=== PATIENT | female | born 1970 | race Caucasian/White ===

== ENCOUNTER 2017-06-03 02:00 | Emergency (ER) | payer BC, MEDICAID ==
[2017-06-03 02:15] VITALS: BP 155/90
[2017-06-03 02:44] LABS: CHLORIDE,CL 102 mmol/L (101-111); SODIUM,NA 138 mmol/L (135-145)
[2017-06-03] MEDS ORDERED: hydrOXYzine HCl 25 MG Tab PO ONE (03:15)
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
--- NOTE | 2017-06-07 09:10 | EKG ---
06/03/2017- AUS, JUNA C CASAS - EKG per my reading shows sinus rhythm at the rate of [address]. [facility] /[id number]
== END 2017-06-03 03:46 | disposition home or self-care (01) ==
LOC: DL.ED 02:00
DX: F41.9 Anxiety disorder, unspecified (principal); I10 Essential (primary) hypertension; F17.210 Nicotine dependence, cigarettes, uncomplicated; Z79.899 Other long term (current) drug therapy
CPT/HCPCS: 36415; 80053; 84484; 85025; 93005; 99283; A9270

== ENCOUNTER 2017-06-03 20:07 | Emergency (ER) | payer BC, MEDICAID ==
[2017-06-03] MEDS ORDERED: LORazepam 2 MG/ML Syringe IM ONE ×3 (20:14→22:23)
--- NOTE | 2017-06-03 20:18 | EDM.PDOCBH ---
ED HPI GENERAL MEDICAL PROBLEM - General Chief Complaint: Behavioral/Psych Stated Complaint: PANICK ATTACK? Time Seen by Provider: 06/03/17 20:15 Source of Information: Reports: Patient History Limitations: Reports: No Limitations - History of Present Illness INITIAL COMMENTS - FREE TEXT/NARRATIVE: was seen last night for same had negative cardiac w/u. home situation did improve but still feels agitated with chest tightness and still can't stop worrying about home situation. 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 ED EXAM, BEHAVIORAL HEALTH - Physical Exam Exam: See Below Exam Limited By: No Limitations General Appearance: Alert, WD/WN, Anxious, Mild Distress Ears: Hearing Grossly Normal Throat/Mouth: Normal Voice, No Airway Compromise Head: Atraumatic Neck: Non-Tender, Full Range of Motion Respiratory/Chest: No Respiratory Distress Cardiovascular: Regular Rate, Rhythm GI/Abdominal: Soft, Non-Tender Neurological: Alert, Normal Cognition, Normal Gait, No Motor/Sensory Deficits, Oriented x 3 Psychiatric: Alert, Tearful, Agitated Skin Exam: Warm, Dry, Normal color COURSE, BEHAVIORAL HEALTH COMP - Course Vital Signs: Last Vital Signs Temp 36.8 C 06/03/17 21:33 Pulse 74 06/03/17 21:33 Resp 18 06/03/17 21:33 BP 134/85 06/03/17 21:33 Pulse Ox 97 06/03/17 21:33 Orders, Labs, Meds: Active Orders 24 hr Category Date Time Status EKG 12 Lead [EKG Documentation Completion] [RC] STAT Care 06/03/17 21:24 Active LORazepam [Ativan] Med 06/03/17 22:23 Once 2 mg IM ONETIME ONE Laboratory Tests 06/03/17 Range/Units 20:20 Troponin I < 0.02 (0.00-0.02) ng/ml Medications Discontinued Medications Generic Name Dose Route Start Last Admin Trade Name Alfonzo PRN Reason Stop Dose Admin Lorazepam 2 mg 06/03/17 20:14 06/03/17 20:23 Ativan IM 06/03/17 20:15 2 mg ONETIME ONE Administration Lorazepam 2 mg 06/03/17 21:24 06/03/17 21:31 Ativan IM 06/03/17 21:25 2 mg ONETIME ONE Administration Re-Assessment/Re-Exam: re-exam; s/p aitvan = minimally better. results discussed with pt. re-exam; results discussed with pt who is feeling much better now. Departure - Departure Time of Disposition: 22:25 Disposition: Home, Self-Care 01 Condition: Good Clinical Impression: Anxiety - Discharge Information Forms: ED Department Discharge Additional Instructions: 1) rest 2) follow up with family doctor or recheck as needed - My Orders Last 24 Hours: My Active Orders 06/03/17 21:24 EKG 12 Lead [EKG Documentation Completion] [RC] STAT 06/03/17 22:23 LORazepam [Ativan] 2 mg IM ONETIME ONE - Assessment/Plan Last 24 Hours: My Active Orders 06/03/17 21:24 EKG 12 Lead [EKG Documentation Completion] [RC] STAT 06/03/17 22:23 LORazepam [Ativan] 2 mg IM ONETIME ONE
[2017-06-03 22:55] VITALS: BP 123/85
--- NOTE | 2017-06-07 09:19 | EKG ---
06/03/2017- AUS, JUAN C CASAS - EKG per my reading shows sinus rhythm at a rate of [address] changes. [facility] /[id number]
== END 2017-06-03 22:41 | disposition home or self-care (01) ==
LOC: DL.ED 20:07
DX: F41.9 Anxiety disorder, unspecified (principal); I10 Essential (primary) hypertension; F17.210 Nicotine dependence, cigarettes, uncomplicated; Z79.899 Other long term (current) drug therapy
CPT/HCPCS: 36415; 84484; 93005; 96372; 99284; J2060; 80053; 85025; 99283; A9270-GY

== ENCOUNTER 2017-06-06 09:38 | Emergency (ER) | payer BC, MEDICAID ==
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
[2017-06-06 09:52] VITALS: BP 154/102
== END 2017-06-06 10:22 | disposition home or self-care (01) ==
LOC: DL.ED 09:38
DX: F41.8 Other specified anxiety disorders (principal); I10 Essential (primary) hypertension; F17.210 Nicotine dependence, cigarettes, uncomplicated; Z79.899 Other long term (current) drug therapy
CPT/HCPCS: 99283